=== PATIENT | female | born 2000 | race Hispanic/Latino ===

== ENCOUNTER 2020-08-31 14:12 | Emergency (ER) | payer MEDICAID | END 2020-08-31 15:41 | disposition short-term general hospital (02) | LOC: NAV ERS 14:12 | DX: O20.9 Hemorrhage in early pregnancy, unspecified (principal); Z3A.01 Less than 8 weeks gestation of pregnancy | CPT/HCPCS: 84702; 86900; 86901; 99284 ==

== ENCOUNTER 2021-04-03 00:31 | Emergency (ER) | payer OTHER, SELFPAY ==
[2021-04-03] MEDS ORDERED: Ibuprofen 800 MG TAB ONE (00:55)
== END 2021-04-03 01:43 | disposition home or self-care (01) ==
LOC: NAV ERS 00:31
DX: R09.1 Pleurisy (principal)
CPT/HCPCS: 85379; 99284

== ENCOUNTER 2023-04-19 22:05 | Emergency (ER) | payer OTHER, SELFPAY ==
[2023-04-19 22:35] LABS: Amphetamine Not Detected (NotDetected); Barbiturates Screen Not Detected (NotDetected); Benzodiazepine Screen Not Detected (NotDetected); Cocaine Metabolite Screen Not Detected (NotDetected); Methadone Not Detected (NotDetected); Methamphetamine Not Detected (NotDetected); Opiate Screen Not Detected (NotDetected); Oxycodone Screen Not Detected (NotDetected); Phencyclidine (PCP) Not Detected (NotDetected); THC/Cannabinoid Screen Not Detected (NotDetected); Tricyclic Screen Not Detected (NotDetected)
[2023-04-20 20:41] LABS: Chlam.trachomatis by PCR,Urine Not Detected (NotDetected); GC N.gonorrhoeae PCR,UrineVOID Not Detected (NotDetected)
== END 2023-04-19 22:52 | disposition home or self-care (01) ==
LOC: NAV ERS 22:05
DX: Z02.83 Encounter for blood-alcohol and blood-drug test (principal); Z20.2 Contact with and (suspected) exposure to infections with a predominantly sexual mode of transmission
CPT/HCPCS: 80306; 87491; 87591; 99283